=== PATIENT | female | born 1930 | race Caucasian/White ===

== ENCOUNTER 2019-04-29 14:49 | Inpatient (IN) | payer MEDICARE, MEDICAID ==
[~2019-04-29] VITALS: Ht 162.6 cm; Wt 74.8 kg
[~2019-04-29 14:49] MED LIST: AMLO5TAB4 PO; BISA-79 RC; HYDR-4354 PO; MAGN400O21 PO; NA P133E RC; NITR100C15 PO; OMEP40CA37 PO; PROP10TA10 PO
--- NOTE | 2019-04-29 15:00 | NUR ---
[facility] [place] [employer] C/O WITNESSED SYNCOPAL EPISODE, -TRAUMA. A/OX3, BREATHING EVEN AND UNLABORED, NO SOB NOTED. HX OF RIGHT MASTECTOMY, NO BP/IV ON RIGHT ARM. CHANGED INTO GOWN, ATTACHED TO THE MONITOR.
[2019-04-29] MEDS ORDERED: ONDANSETRON HCL/PF 4 MG/2 ML VIAL ONE (15:08)
[2019-04-29] MEDS ORDERED: MULT1TAB73 PO (15:13)
[2019-04-29] MEDS ORDERED: RIVA10TA PO (15:13)
[2019-04-29] MEDS ORDERED: ASCO500P18 PO (15:13)
[2019-04-29] MEDS ORDERED: CRAN450C PO (15:13)
[2019-04-29] MEDS ORDERED: GUAI-959 PO (15:13)
[2019-04-29] MEDS ORDERED: TYL2T PO (15:13)
[2019-04-29] MEDS ORDERED: AMLO5TAB4 PO (15:13)
[2019-04-29] MEDS ORDERED: CARB-94 PO (15:13)
[2019-04-29 15:21] LABS: BASOPHILS % (AUTO) 0.5 % (0.0-2.0); EOSINOPHILS % (AUTO) 0.3 % (0.0-6.0); HEMATOCRIT 36 % (33-45); HEMOGLOBIN 12.2 g/dL (11.5-14.8); LYMPHOCYTES # (AUTO) 1.2 /CMM (0.8-4.8); LYMPHOCYTES % (AUTO) 17.9 % (20.0-44.0); MEAN CORPUSCULAR HGB CONC 34 g/dl (31.0-36.0); MEAN CORPUSCULAR VOLUME 88 fL (82-100); MONOCYTES # (AUTO) 0.4 /CMM (0.1-1.30); MONOCYTES % (AUTO) 5.7 % (2.0-12.0); NEUTROPHILS # (AUTO) 5.2 /CMM (1.8-8.9); NEUTROPHILS % (AUTO) 75.6 % (43.0-81.0); PLATELET COUNT (AUTO) 169 /CMM (150-450); RED BLOOD CELL COUNT(AUTO) 4.12 MIL/uL (4.0-5.2); WHITE BLOOD COUNT (AUTO) 6.8 K/uL (4.3-11.0)
[2019-04-29] MEDS ORDERED: IV NS 0.9% 1,000 ML BAG IV ONE (15:30)
[2019-04-29] MEDS ORDERED: ONDANSETRON HCL/PF 4 MG/2 ML VIAL IVP ONE (15:30)
[2019-04-29 15:44] LABS: APPEARANCE,URINE Cloudy (CLEAR); BILIRUBIN,URINE Negative (NEGATIVE); BLOOD, URINE Negative Ery/uL (NEGATIVE); COLOR,URINE Yellow (YELLOW); KETONES,URINE Trace (NEGATIVE); LEUKOCYTE ESTERASE ,URINE Moderate (NEGATIVE); NITRITE, URINE Negative (NEGATIVE); PROTEIN,URINE 30 mg/dl (NEGATIVE); UGLUCOSE Negative (NEGATIVE); UROBILINOGEN,URINE 0.2 EU/dL (0.2)
--- NOTE | 2019-04-29 15:51 | NUR ---
TELECOMMUNICATIONS PROFESSIONAL AT BEDSIDE FOR EVAL.
[2019-04-29 16:29] LABS: ALANINE AMINOTRANSFERASE 7 U/L (12-78); ALBUMIN 3.6 g/dL (3.4-5.0); ALKALINE PHOSPHATASE 102 U/L (46-116); ASPARTATE AMINOTRANSFERASE 17 U/L (15-37); BILIRUBIN,DIRECT 0.1 mg/dL (0.0-0.2); BILIRUBIN,TOTAL 0.7 mg/dL (0.2-1.0); CALCIUM, SERUM 9.6 mg/dL (8.5-10.1); CARBON DIOXIDE 28 mmol/L (21-32); CHLORIDE 102 mmol/L (98-107); GLUCOSE 109 mg/dL (74-106); LIPASE 80 U/L (73-393); SODIUM SERUM 137 mmol/L (136-145); TOTAL PROTEIN, SERUM 7.2 g/dL (6.4-8.2); UREA NITROGEN, BLOOD 12 mg/dL (7-18)
[2019-04-29] MEDS ORDERED: CEFTRIAXONE 1GM BAG (ER ONLY) 50 ML IV ONE (16:38)
[2019-04-29 16:49] LABS: BACTERIA,URINE 2+ /HPF (None Seen); RBC,URINE NONE SEEN /HPF (0-2); SQUAMOUS EPITHELIAL CELL,UR Few /HPF (None Seen); WBC,URINE 21-50 /HPF (0-3)
--- NOTE | 2019-04-29 16:55 | NUR ---
324-2 [facility] / [facility]
[2019-04-29] MEDS ORDERED: ONDANSETRON HCL/PF 4 MG/2 ML VIAL IVP PRN (17:00)
[2019-04-29] MEDS ORDERED: ACETAMINOPHEN 325 MG TABLET PO PRN ×2 (17:00)
[2019-04-29] MEDS ORDERED: GUAIFENESIN/D-METHORPHAN HB 5 ML UDC PO PRN (17:00)
[2019-04-29] MEDS ORDERED: BISACODYL (5 MG) 5 MG TABLET.DR PO PRN (17:00)
[2019-04-29] MEDS ORDERED: Medication Not On Formulary EA (Cranberry Fruit Concentrate (Cranberry) 450 MG) PO SCH (17:00)
[2019-04-29] MEDS ORDERED: NA PHOS,M-B/NA PHOS,DI-BA 1 EA ENEMA RC PRN (17:00)
[2019-04-29] MEDS ORDERED: Z GUARD REMEDY 2 OZ OINT TP PRN (17:00)
[2019-04-29] MEDS ORDERED: MAGNESIUM HYDROXIDE 30 ML UDC PO PRN ×2 (17:00)
[2019-04-29] MEDS ORDERED: CEFTRIAXONE 1 G in IV D5W 50 ML IV ONE (17:00)
[2019-04-29] MEDS ORDERED: HYDROCODONE/APAP 5/325MG 1 EACH TABLET PO PRN (17:00)
[2019-04-29] MEDS ORDERED: ZOLPIDEM TARTRATE 5 MG TABLET PO PRN (17:00)
[2019-04-29] MEDS ORDERED: MAG HYDROX/AL HYDROX/SIMETH 30 ML UDC PO PRN (17:00)
--- NOTE | 2019-04-29 17:09 | NUR ---
REPORT GIVEN TO MILKA CESPEDES.
[2019-04-29 17:30] VITALS: BP 154/77
--- NOTE | 2019-04-29 17:30 | NUR ---
MS BOBJ DEVELOPER NOTE PATIENT IN BED RESTING COMFORTABLY. PATIENT IN NO ACUTE DISTRESS. NO SOB NOTED. PATIENT BREATHING ON ROOM AIR >95% SPO2. BREATHING IS EVEN AND UNLABORED. PATIENT IS ALERT AND ORIENTED X3. PATIENT IS ABLE TO VERBALIZE NEEDS. NEEDS ADDRESSED. VITAL SIGNS WNL. PATIENT IV IS INTACT. MD MADE AWARE. PATIENT BED IS LOCKED AND IN LOWEST POSITION. SAFETY PRECAUTIONS IN PLACE. CALL LIGHT WITHIN REACH. WILL CONTINUE TO MONITOR .
--- NOTE | 2019-04-29 17:34 | NUR ---
PATIENT TRANSFERRED TO ROOM 324-2 ENDORSED TO MILKA CESPEDES. PATIENT IN STABLE CONDITION.
[2019-04-29] MEDS: IV NS 0.9% 1,000 ML IV SCH (17:49)
[2019-04-29] MEDS: CARBIDOPA/LEVODOPA 25/250 MG 1 UDTAB PO SCH (17:52)
--- NOTE | 2019-04-29 19:20 | NUR ---
MS RN OPENING NOTES Patient received sitting up in bed, watching TV. Alert, oriented x 3. Breathing even and unlabored. Not in any distress. Peripheral IV infusing at 100mL/hr. No complaints at this time. Safety measures in place; call light within reach, bed in low, locked position. Will continue to monitor accordingly
--- NOTE | 2019-04-29 19:30 | NUR ---
MS RN CLOSING NOTE PATIENT WAS SEEN AND EVALUATED BY DR. HOUSTON. ORDERS ARE IN PLACE. PATIENT IN BED BREATHING ON ROOM AIR SATURATING >95% SPO2. PATIENT BREATHING IS EVEN AND UNLABORED. PATIENT IN NO ACUTE DISTRESS. NO SOB NOTED. PATIENT POLST IS IN THE CHART. ALL NURSING NEEDS MET. PATIENT KEPT CLEAN, DRY, AND REPOSITIONED. PATIENT BED IS LOCKED AND IN LOWEST POSITION. CALL LIGHT WITHIN REACH. PATIENT VERBALIZED NEEDS. NEEDS ADDRESSED. ENDORSED CARE TO PM SHIFT FOR [facility].
[2019-04-29 20:00] VITALS: BP 170/62
--- NOTE | 2019-04-29 23:00 | NUR ---
RN NOTES Patient's heart rate went down to 34-40's. Dr. Mathur informed. As per Dr. Mathur, transfer patient to tele. CN made aware. Orders noted and carried out
[2019-04-30] VITALS (8 sets, daily range): BP systolic 126–194; BP diastolic 73–90
[2019-04-30] MEDS: IV NS 0.9% 1,000 ML IV SCH ×2 (05:00→12:23)
[2019-04-30 06:45] LABS: CHOLESTEROL 204 mg/dL (<200); HDL CHOLESTEROL 53 mg/dL (40-60); TRIGLYCERIDES 66 mg/dL (30-150)
[2019-04-30 06:48] LABS: BASOPHILS % (AUTO) 0.7 % (0.0-2.0); EOSINOPHILS % (AUTO) 3.5 % (0.0-6.0); HEMATOCRIT 35 % (33-45); HEMOGLOBIN 11.8 g/dL (11.5-14.8); MEAN CORPUSCULAR HGB CONC 34 g/dl (31.0-36.0); MEAN CORPUSCULAR VOLUME 87 fL (82-100); MONOCYTES # (AUTO) 0.5 /CMM (0.1-1.30); NEUTROPHILS % (AUTO) 51.8 % (43.0-81.0); PLATELET COUNT (AUTO) 177 /CMM (150-450); WHITE BLOOD COUNT (AUTO) 5.8 K/uL (4.3-11.0)
[2019-04-30 06:49] LABS: CALCIUM, SERUM 9.5 mg/dL (8.5-10.1); CARBON DIOXIDE 24 mmol/L (21-32); CHLORIDE 106 mmol/L (98-107); CREATININE 0.8 mg/dL (0.6-1.3); GLUCOSE 82 mg/dL (74-106); MAGNESIUM 1.7 mg/dL (1.8-2.4); PHOSPHORUS 2.8 mg/dL (2.5-4.9); POTASSIUM 3.7 mmol/L (3.5-5.1); SODIUM SERUM 140 mmol/L (136-145); UREA NITROGEN, BLOOD 11 mg/dL (7-18)
[2019-04-30 07:05] LABS: LDL 134 mg/dL (0-99)
--- NOTE | 2019-04-30 07:06 | NUR ---
RN CLOSING NOTES Patient in bed, alert, oriented x 3. Breathing even and unlabored. Not in any distress. Peripheral IV infusing at 100mL/hr. Tele monitor in place- sinus rhythm 61 with 1st degree block and ST depression. No complaints at this time. Safety measures in place; call light within reach, bed in low, locked position. Will endorse MAYCO to oncoming RN
--- NOTE | 2019-04-30 08:07 | NUR ---
LEADER TIER NOTES PT IN BED, AWAKE, ALERT AND ORIENTED, NO COMPLAINT OF PAIN OR ANY DISCOMFORT, RESPIRATIONS NORMAL, CALL LIGHT WITHIN REACH, EATING BREAKFAST, STATED THAT SHE FEELS BETTER AND HAD A GOOD NIGHT'S SLEEP, SEEN BY DR. HOUSTON, PLAN OF CARE DISCUSSED WITH PT, VERBALIZED UNDERSTANDING, NEEDS ATTENDED.
[2019-04-30] MEDS: Magnesium 1GM/D5W 100ML PREMIX 100 ML IV SCH ×2 (08:42→09:42)
[2019-04-30] MEDS: ASCORBIC ACID 500 MG TABLET PO SCH ×2 (08:43→16:29)
[2019-04-30] MEDS: MULTIVITAMINS,THERAGRAN 1 UDTAB TABLET PO SCH (08:43)
[2019-04-30] MEDS: CARBIDOPA/LEVODOPA 25/250 MG 1 UDTAB PO SCH ×3 (08:43→16:29)
[2019-04-30] MEDS: AMLODIPINE BESYLATE 5 MG TABLET PO SCH (08:43)
[2019-04-30] MEDS: PANTOPRAZOLE 40 MG TABLET.DR PO SCH (08:43)
[2019-04-30] MEDS: RIVAROXABAN 10 MG TABLET PO SCH (08:44)
[2019-04-30 09:18] LABS: THYROID STIMULATING HORMONE 3.646 uIU/mL (0.358-3.74)
--- NOTE | 2019-04-30 13:00 | NUR ---
AREA REPRESENTATIVE NOTES PT IN BED, ASLEEP, EASY TO AROUSE, NO COMPLAINT OF PAIN, BREATHING PATTER NORMAL, IV FLUIDS INFUSING WELL, SEEN BY PHYSICAL THERAPIST, TOLERATED PT EXERCISES WELL, ASSISTED IN REPOSITIONING, TOLERATES CURRENT DIET WELL.
[2019-04-30] MEDS: CEFTRIAXONE 1 G in IV D5W 50 ML IV SCH (16:29)
--- NOTE | 2019-04-30 16:30 | NUR ---
BIOFUELS PROCESSING TECHNICIAN NOTES PT IN BED, AWAKE, ALERT AND ORIENTED, DENIES PAIN OR ANY DISCOMFORT, NOTED WITH ELEVATED BP 182/80 HR 64, NO COMPLAINT OF HEADACHE OR DIZZINESS, DR. HOUSTON INFORMED, PER MD, D/C IVF AND RECHECK AFTER AN HOUR USING MANUAL BP, NOTED AND CARRIED OUT.
--- NOTE | 2019-04-30 18:00 | NUR ---
FENCE SETTER NOTES RECHECKED PT'S BP 186/78 HR 66 AUTOMATIC CUFF, 175/70 ON THE MANUAL CUFF, PT DOES NOT COMPLAIN OF ANY DISCOMFORT, DR. HOUSTON MADE AWARE, ORDERED TO GIVE ONE DOSE OF HYDRALAZINE 25 MG PO.
[2019-04-30] MEDS ORDERED: hydrALAZINE HCL 25 MG TABLET PO ONE (18:30)
--- NOTE | 2019-04-30 18:30 | NUR ---
DUMPSTER OPERATOR NOTES RECHECKED PT'S BP 153/81 HR 62, MED NOT GIVEN, WILL CONTINUE TO MONITOR.
--- NOTE | 2019-04-30 19:05 | NUR ---
TIE UP WORKER OPENING NOTES Patient received sitting up in bed, alert, oriented x 3. Breathing even and unlabored. Not in any distress, on room air. No complaints at this time. Safety measures in place; call light within reach, bed in low, locked position. Will continue to monitor accordingly
--- NOTE | 2019-04-30 19:30 | NUR ---
RN NOTES Tele monitor in place- sinus rhythm 65 with 1st degree AV block
[2019-05-01] VITALS: BP 167/74
[2019-05-01 04:00] VITALS: BP 144/88
--- NOTE | 2019-05-01 05:41 | NUR ---
RECEIVED PATIENT IN BED AWAKE, AO X 3, ABLE TO MAKE NEEDS KNOWN. NO ACUTE DISTRESS NOTED. DENIES ANY PAIN AT THIS TIME. IV SITE PATENT, INTACT; FLUSHED. SAFETY REMINDERS GIVEN. ON LOW BED WITH BILATERAL UPPER SIDE RAILS UP. CALL [place] WITHIN EASY REACH. WILL CONTINUE TO MONITOR. Addendum: 05/02/19 at 0542 by KELLIE MALLOY RN WRONG TIME; FOR 05/01/191929
--- NOTE | 2019-05-01 06:13 | NUR ---
LOCK AND DAM OPERATOR CLOSING NOTES Patient in bed, alert, oriented x 3. Breathing even and unlabored. Not in any distress. Tele monitor in place- sinus scott 57 with 1st degree block, lowest HR overnight 41. No complaints at this time. All needs attended to. Safety measures in place; call light within reach, bed in low, locked position. Will endorse MAYCO to oncoming RN
[2019-05-01 06:34] LABS: BASOPHILS % (AUTO) 0.8 % (0.0-2.0); HEMATOCRIT 36 % (33-45); HEMOGLOBIN 12.3 g/dL (11.5-14.8); LYMPHOCYTES # (AUTO) 2.4 /CMM (0.8-4.8); LYMPHOCYTES % (AUTO) 38.9 % (20.0-44.0); MEAN CORPUSCULAR HGB CONC 34 g/dl (31.0-36.0); MEAN CORPUSCULAR VOLUME 87 fL (82-100); MONOCYTES # (AUTO) 0.6 /CMM (0.1-1.30); MONOCYTES % (AUTO) 10.2 % (2.0-12.0); NEUTROPHILS # (AUTO) 2.9 /CMM (1.8-8.9); NEUTROPHILS % (AUTO) 46.1 % (43.0-81.0); PLATELET COUNT (AUTO) 169 /CMM (150-450); RED BLOOD CELL COUNT(AUTO) 4.12 MIL/uL (4.0-5.2); WHITE BLOOD COUNT (AUTO) 6.2 K/uL (4.3-11.0)
[2019-05-01 06:42] LABS: CALCIUM, SERUM 9.7 mg/dL (8.5-10.1); CARBON DIOXIDE 27 mmol/L (21-32); CHLORIDE 104 mmol/L (98-107); CREATININE 0.9 mg/dL (0.6-1.3); GLUCOSE 86 mg/dL (74-106); MAGNESIUM 2.1 mg/dL (1.8-2.4); POTASSIUM 3.9 mmol/L (3.5-5.1); SODIUM SERUM 139 mmol/L (136-145); UREA NITROGEN, BLOOD 16 mg/dL (7-18)
--- NOTE | 2019-05-01 07:40 | NUR ---
ms rn received on bed, awake,alert,oriented x4,not in any form of distress, respirations even and unlabored,no sob noted, lungs are diminish,abdomen soft,positive bowel sounds, denies pain at this time,all needs attended.
--- NOTE | 2019-05-01 07:55 | NUR ---
ms means received on bed, awake,demented, not in any form of distress, respirations even and unlabored,no sob noted, lungs are diminished,abdomen soft,positive bowel sounds, dx right leg fracture,will monitor patient. Addendum: 05/01/19 at 1820 by JASON MARTE RN disregard charting, wrong time and patient.
[2019-05-01 08:00] VITALS: BP 191/101
[2019-05-01] MEDS: MULTIVITAMINS,THERAGRAN 1 UDTAB TABLET PO SCH (09:31)
[2019-05-01] MEDS: CARBIDOPA/LEVODOPA 25/250 MG 1 UDTAB PO SCH ×3 (09:31→17:23)
[2019-05-01] MEDS: ASCORBIC ACID 500 MG TABLET PO SCH ×2 (09:31→17:23)
[2019-05-01] MEDS: VALSARTAN 80 MG TABLET PO SCH (09:32)
[2019-05-01] MEDS: AMLODIPINE BESYLATE 5 MG TABLET PO SCH (09:32)
[2019-05-01] MEDS: RIVAROXABAN 10 MG TABLET PO SCH (09:33)
--- NOTE | 2019-05-01 09:40 | NUR ---
ms means breakfast served,due meds given, tolerated well.
[2019-05-01] MEDS: PANTOPRAZOLE 40 MG TABLET.DR PO SCH (09:43)
--- NOTE | 2019-05-01 10:00 | NUR ---
ms rn son at bedside, was able to speak w/ dr. sood over the phone w/ orders made and carried out.
[2019-05-01 16:00] VITALS: BP 136/66
[2019-05-01] MEDS: CEFTRIAXONE 1 G in IV D5W 50 ML IV SCH (17:24)
--- NOTE | 2019-05-01 19:17 | NUR ---
ms rn on bed, no distress noted, report given to i car shifter rn.
--- NOTE | 2019-05-01 19:30 | NUR ---
RECEIVED PATIENT IN BED AWAKE, AO X 3, ABLE TO MAKE NEEDS KNOWN. NO ACUTE DISTRESS NOTED. DENIES ANY PAIN AT THIS TIME. IV SITE PATENT, INTACT; FLUSHED. SAFETY REMINDERS GIVEN. ON LOW BED WITH BILATERAL UPPER SIDE RAILS UP. CALL [place] WITHIN EASY REACH. WILL CONTINUE TO MONITOR.
[2019-05-01 20:00] VITALS: BP 112/76
[2019-05-01 20:27] VITALS: BP 112/76
--- NOTE | 2019-05-02 06:00 | NUR ---
PATIENT ASLEEP, EASILY AROUSABLE. RESPIRATIONS EVEN. NO SIGNS OF PAIN NOTED. DUE MEDS GIVEN WITH NO ASE NOTED. IVF INFUSING ORDERED. PATIENT WAS OFFERED FOOD THROUGHOUT THE NIGHT WHEN AWAKE INSTRUCTED BY FAMILY. PATIENT ATE TWO PIECES OF ZUCCHINI AND SOME ICING FROM [employer]; RELAYED TO EMELY FAMILY MEMBER. NEEDS ATTENDED. KEPT CLEAN, DRY, AND COMFORTABLE. SAFETY PRECAUTIONS AND COMFORT MEASURES IN PLACE. WILL GIVE REPORT TO DAY SHIFT FOR CONTINUITY OF CARE.
[2019-05-02 06:36] LABS: BASOPHILS # (AUTO) 0.1 /CMM (0.0-0.2); BASOPHILS % (AUTO) 0.8 % (0.0-2.0); EOSINOPHILS % (AUTO) 4.4 % (0.0-6.0); HEMATOCRIT 35 % (33-45); HEMOGLOBIN 11.9 g/dL (11.5-14.8); LYMPHOCYTES # (AUTO) 2.6 /CMM (0.8-4.8); LYMPHOCYTES % (AUTO) 39.4 % (20.0-44.0); MEAN CORPUSCULAR HGB CONC 34 g/dl (31.0-36.0); MEAN CORPUSCULAR VOLUME 87 fL (82-100); MONOCYTES # (AUTO) 0.6 /CMM (0.1-1.30); MONOCYTES % (AUTO) 9.1 % (2.0-12.0); NEUTROPHILS % (AUTO) 46.3 % (43.0-81.0); PLATELET COUNT (AUTO) 184 /CMM (150-450); RED BLOOD CELL COUNT(AUTO) 4.01 MIL/uL (4.0-5.2); WHITE BLOOD COUNT (AUTO) 6.5 K/uL (4.3-11.0)
[2019-05-02 06:50] LABS: CALCIUM, SERUM 9.5 mg/dL (8.5-10.1); CARBON DIOXIDE 26 mmol/L (21-32); CHLORIDE 105 mmol/L (98-107); CREATININE 0.9 mg/dL (0.6-1.3); GLUCOSE 88 mg/dL (74-106); POTASSIUM 3.8 mmol/L (3.5-5.1); SODIUM SERUM 140 mmol/L (136-145); UREA NITROGEN, BLOOD 21 mg/dL (7-18)
--- NOTE | 2019-05-02 08:00 | NUR ---
m/s non profit director: initial assessment received pt in bed awake, a/ox3. no c/o pain or any discomfort. pt wants to go home today. awaiting for md evaluation. offered to take photos prior to d'c, but pt refused, stated, "i don't want it, i already said no to the other nurse last night." in no apparent distress noted. will continue to monitor.
[2019-05-02] MEDS: PANTOPRAZOLE 40 MG TABLET.DR PO SCH (08:10)
[2019-05-02] MEDS: VALSARTAN 80 MG TABLET PO SCH (08:10)
[2019-05-02] MEDS: CARBIDOPA/LEVODOPA 25/250 MG 1 UDTAB PO SCH ×2 (08:10→13:47)
[2019-05-02] MEDS: MULTIVITAMINS,THERAGRAN 1 UDTAB TABLET PO SCH (08:10)
[2019-05-02] MEDS: AMLODIPINE BESYLATE 5 MG TABLET PO SCH (08:10)
[2019-05-02] MEDS: ASCORBIC ACID 500 MG TABLET PO SCH (08:10)
[2019-05-02] MEDS: RIVAROXABAN 10 MG TABLET PO SCH (08:12)
[2019-05-02] MEDS ORDERED: LEVO500T75 PO (08:48)
[2019-05-02 09:00] VITALS: BP 110/74
[2019-05-02 09:25] VITALS: BP 104/61
--- NOTE | 2019-05-02 09:54 | NUR ---
m/s trapper animal: notes updated vaccinations, per pt she had the flu and pneumococcal vaccination a year ago, but unable to recall the month.
--- NOTE | 2019-05-02 12:30 | NUR ---
m/s sales consulting director: notes case management arrangement completed, eta 1400. pt made aware. pt still refuses skin photos prior to discharge. meo (rn) locomotive supervisor [facility] [employer] not available to take report at this time per front desk receptionist. discharge instructions given to pt and verbalized understanding. educated pt on levaquin (antibiotic) including side effects, pt verbalized understanding and will complete the course for 3 days more. instructed to call for assistance. will continue to monitor.
--- NOTE | 2019-05-02 13:35 | NUR ---
m/s yard labor supervisor: notes report given to moe ramirez) from [facility] for continuity of care.
--- NOTE | 2019-05-02 14:10 | NUR ---
m/s veneer stock grader: notes ambulance here and report given to one of the crew. h/l removed with tip intact with no bleeding, no redness, and no swelling noted.
--- NOTE | 2019-05-02 14:22 | NUR ---
m/s key cutter: discharged discharged to snf via ambulance in stable condition with all d'c papers accompanied by 2 crew.
== END 2019-05-02 14:25 | DRG 690 ==
LOC: ER 14:51 → MED 17:01 → TELE 23:06 → MED 05-01 09:23
PROVIDERS: ADMIT Family Medicine; ATTEND Family Medicine
DX: N39.0 Urinary tract infection, site not specified (principal); R55 Syncope and collapse; I10 Essential (primary) hypertension; I25.10 Atherosclerotic heart disease of native coronary artery without angina pectoris; E86.9 Volume depletion, unspecified; K21.9 Gastro-esophageal reflux disease without esophagitis; I25.2 Old myocardial infarction; M06.9 Rheumatoid arthritis, unspecified; E83.42 Hypomagnesemia; M19.90 Unspecified osteoarthritis, unspecified site; Z86.718 Personal history of other venous thrombosis and embolism; Z90.710 Acquired absence of both cervix and uterus; Z90.11 Acquired absence of right breast and nipple; Z85.3 Personal history of malignant neoplasm of breast; Z66 Do not resuscitate; B96.1 Klebsiella pneumoniae [K. pneumoniae] as the cause of diseases classified elsewhere
CPT/HCPCS: 36415; 71045-TC; 80048-TC; 80061-TC; 80076-TC; 81000-TC; 83690-TC; 83735-TC; 84100-TC; 84439-TC; 84443-TC; 84484-TC; 85025-TC; 87081-TC; 87086-TC; 87186-TC; 93307-TC; 97110-TC; 97116-TC; 97530-TC; G0378; J0696; J2405; J3475; J7030; J7060